=== PATIENT | male | born 1980 | race African-American/Black ===

== ENCOUNTER → 2018-03-11 11:05 | Outpatient (CLI) | payer OTHER, SELFPAY ==
--- NOTE | 2018-03-11 11:09 | DI.MRI.S_ITS ---
PROCEDURE: MR ANKLE RT WO/W CON INDICATIONS: BILATERAL HEEL PAIN TECHNIQUE: Noncontrast sagittal T1 spin echo and T2 fast spin echo with fat saturation, axial proton density fast spin echo and T2 fast spin echo with fat saturation, axial T1 spin echo with fat saturation, coronal T1 spin echo and T2 fast spin echo with fat saturation through the ankle/hindfoot. Post-contrast axial, coronal, and sagittal T1 spin echo with fat saturation through the ankle/hindfoot. COMPARISON: [facility], CR, XR FOOT 3+ VIEWS RIGHT, 02/26/2018, 15:14. FINDINGS: Image quality: Diagnostic. Bones and joints: There is no acute fracture, dislocation, or suspicious osseous lesion is identified involving the osseous structures of the right foot. There are mild degenerative changes identified involving the midfoot and forefoot joints. Ankle mortise is well-maintained. There are no osteochondral defects identified involving the tibial plafond toward the talar dome. A small tibiotalar joint effusion is identified. No additional effusions are evident. No suspicious osseous enhancement is identified. Medial structures: The deltoid ligament and the spring ligament appear to be intact. However, there is thickening of the superomedial band of the spring ligament, suggesting scarring. The tibialis posterior and flexor digitorum longus, and flexor hallucis longus tendons are intact and otherwise within normal limits. The posterior tibial nerve to the region of the tarsal tunnel is grossly unremarkable. Lateral structures: The anterior and posterior distal tibiofibular ligaments are intact. The anterior and posterior talofibular ligaments are intact. The calcaneofibular ligament is intact. There is slight increased signal and thickening involving the peroneus longus tendon along the posterior margin of the lateral malleolus. A similar appearance is noted involving the peroneus brevis tendon. No significant tearing is identified. There is a small ganglion cyst emanating from the region of the sinus tarsi Anterior structures: The tibialis anterior, extensor hallucis longus, and extensor digitorum longus tendons appear intact. Posterior and plantar structures: Mild thickening involving the distal margin of the Achilles tendon is present without significant tearing. The plantar fascia is intact and otherwise within normal limits. Other soft tissues: No soft tissue masses are evident. No suspicious soft tissue enhancement is identified. IMPRESSION: 1. No suspicious soft tissue or bony masses or abnormal enhancement. 2. Mild Achilles tendinopathy without significant tearing. 3. Mild peroneus brevis and peroneus longus tendinopathy. 4. Probable scarring of the spring ligament. No complete tear. 5. Mild degenerative changes of the midfoot and hindfoot joints. Dictated by: Jose Arana M.D. on 03/11/2018 at 16:47 Approved by: Jose Arana M.D. on 03/11/2018 at 16:52
--- NOTE | 2018-03-11 11:09 | DI.MRI.S_ITS ---
PROCEDURE: MR ANKLE LT WO/W CON INDICATIONS: BILATERAL HEEL PAIN TECHNIQUE: Noncontrast sagittal T1 spin echo and T2 fast spin echo with fat saturation, axial proton density fast spin echo and T2 fast spin echo with fat saturation, axial T1 spin echo with fat saturation, coronal T1 spin echo and T2 fast spin echo with fat saturation through the ankle/hindfoot. Post-contrast axial, coronal, and sagittal T1 spin echo with fat saturation through the ankle/hindfoot. COMPARISON: [facility], CR, XR FOOT 3+ VIEWS RIGHT, 02/26/2018, 15:14. [facility], CR, XR FOOT 3+ VIEWS LEFT, 02/26/2018, 15:10. [facility], MR, MR ANKLE RT WO/W CON, 03/11/2018, 11:32. FINDINGS: Image quality: Excellent. Bones and joints: No suspicious osseous enhancement. No bone marrow contusions or fractures. No hindfoot coalitions. 4 mm lateral talus signal change without enhancement. No pathologic joint effusions. Medial structures: The posterior tibialis, flexor digitorum longus, and flexor hallucis longus tendons are intact. There is minimal fluid adjacent to the posterior tibialis tendon The posterior tibial neurovascular bundle appears normal within the tarsal tunnel, without extrinsic mass effect. The spring ligament appears thickened and demonstrates increased T2 hyperintensity. This may extend into the deep and superficial components of the deltoid ligament complex Lateral structures: The anterior talofibular and the calcaneofibular ligament not well seen probably indicating chronic rupture Posterior talofibular ligament appears intact. More superiorly, the anterior and posterior tibiofibular ligaments appear intact, as is the intermalleolar ligament. The tibiofibular syndesmosis is normal in width at 2 mm or less. The peroneus longus and brevis tendons demonstrate normal location and morphology. Adjacent bony peroneal tubercle and retrotrochlear prominence are normal in size. The sinus tarsi demonstrates normal fatty signal, without edema, fibrosis, or cyst formation. Visualized sinus tarsi components (cervical ligament, interosseous talocalcaneal ligament, roots of the inferior extensor retinaculum) appear normal. The calcaneonavicular and calcaneocuboid components of the bifurcate ligament appear intact. The dorsal calcaneocuboid ligament appears intact. Anterior structures: The tibialis anterior, extensor hallucis longus, and extensor digitorum longus tendons appear intact. The dorsal talonavicular ligament appears intact. Posterior and plantar structures: Achilles tendon is intact. Medial and lateral bands of the plantar fascia are of normal thickness. No abductor digiti quinti muscle atrophy to suggest Robledo neuropathy. 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 Subacute or chronic appearance of spring ligament sprain, with possible involvement of the deep and superficial layers of the deltoid complex. There is plantar flexion of the talus on the comparison radiograph dated 02/26/18. Focal marrow edema involving the lateral talar dome however this is probably degenerative cystic change or edema potentially related to chronic lateral ligamentous complex injury, versus osteochondral defect. Minimal posterior tibialis tenosynovitis. Dictated by: Bashir Cuevas M.D. on 03/11/2018 at 15:19 Approved by: Bashir Cuevas M.D. on 03/11/2018 at 15:48
== END ==
PROVIDERS: Visit Provider Podiatrist
DX: M79.672 Pain in left foot (principal); M79.671 Pain in right foot; S93.412A Sprain of calcaneofibular ligament of left ankle, initial encounter; S93.492A Sprain of other ligament of left ankle, initial encounter; M19.071 Primary osteoarthritis, right ankle and foot
CPT/HCPCS: 73723; A9579

== ENCOUNTER 2018-10-23 17:23 | Emergency (ER) | payer OTHER, SELFPAY ==
[2018-10-23 17:34] VITALS: BP 128/78; PULSE 68; RESP 20; TEMP 36.6; O2SAT 96
--- NOTE | 2018-10-23 19:04 | ED.ALLEREA ---
HPI - Allergic Reaction General Chief complaint: Allergic Reaction Stated complaint: SHORT OF BREATH, LUMP ON NECK GROWING Time Seen by Provider: 10/23/18 18:03 Source: patient and family Mode of arrival: ambulatory Limitations: no limitations History of Present Illness HPI narrative: 38-year-old male nonsmoker presents with his and children in the chief complaint of a sudden onset left-sided neck pain, swelling and difficulty swallowing which started late this afternoon after eating. He denies any fever chills. He denies any history of the same. He denies any exposure to new foods, lotions or pets. He denies any recent sore throat, runny nose or cough. He denies any swelling of his lips or tongue. He denies any rash. He is fully immunized MD complaint: facial swelling Onset (ago): hour(s) Exposure: unknown Symptoms: difficulty swallowing Severity: mild Treatment prior to arrival: none Previous Allergic Reaction History: none Review of Systems Constitutional Denies chills, Denies fever(s), Denies lethargy and Denies weakness Eyes Denies change in vision, Denies eye discharge, Denies irritation and Denies loss of vision ENT Ears, Nose, Mouth, and Throat: Denies change in voice, Reports neck pain, Denies sore throat and Reports throat swelling Cardiovascular Denies chest pain, Denies irregular heart rhythm, Denies lightheadedness, Denies palpitations, Denies dyspnea, Denies dyspnea on exertion and Denies orthopnea Respiratory Denies cough, Denies dyspnea, Denies dyspnea on exertion and Denies wheezing Gastrointestinal Gastrointestinal: Denies abdominal pain, Denies change in bowel habits, Denies diarrhea, Denies nausea and Denies vomiting Genitourinary Denies hematuria, Denies flank pain, Denies urinary incontinence and Denies urinary urgency Musculoskeletal Reports neck pain Integumentary/Breasts Denies pruritus, Denies erythema, Denies rash and Denies wounds Neurologic Denies confusion, Denies loss of vision and Denies weakness Psychiatric Denies anxiety, Denies confusion, Denies depression, Denies homicidal ideation and Denies suicidal ideation Endocrine Denies palpitations Hematologic/Lymphatic Denies easy bruising Allergic/Immunologic Reports throat swelling and Denies wheezing PFSH Social History Smoking Status: Never smoker Social History Smoking Status: Never smoker Exam Narrative Exam Narrative: GENERAL: 38-year-old male appears stated age, anxious, overweight HEAD: Atraumatic. Normocephalic. No temporal or scalp tenderness. EYES: Pupils equal round and reactive. Extraocular motions intact. No scleral icterus. No injection or drainage. ENT: Left lateral neck swelling and tenderness to palpation, no redness, induration or fluctuance Nose without bleeding, purulent drainage or septal hematoma. Throat without erythema, tonsillar hypertrophy or exudate. Uvula midline. Airway patent. NECK: Trachea midline. No JVD or lymphadenopathy. Supple, nontender, no meningeal signs. CARDIOVASCULAR: Regular rate and rhythm without murmurs, gallops, or rubs. RESPIRATORY: Clear to auscultation. Breath sounds equal bilaterally. No wheezes, rales, or rhonchi. GASTROINTESTINAL: Abdomen soft, non-tender, nondistended. No hepato-splenomegaly, or palpable masses. No guarding. EXTREMITIES: No clubbing, cyanosis, or edema. No joint tenderness, effusion, or edema noted. BACK: Nontender without deformity or crepitance. No flank tenderness. NEURO: AOx3. SKIN: No rash or erythema. Initial Vital Signs Initial Vital Signs: Vital Signs Temperature 97.8 F 10/23/18 17:34 Pulse Rate 68 10/23/18 17:34 Respiratory Rate 20 10/23/18 17:34 Blood Pressure 128/78 10/23/18 17:34 Pulse Oximetry 96 10/23/18 17:34 Course Orders Ordered: ED Orders 10/23/18 19:13 CT soft tissue neck w con Stat Discontinued Medications Dexamethasone (Decadron) 20 mg IV NOW ONE Stop: 10/23/18 19:14 Last Admin: 10/23/18 19:24 Dose: 20 mg Sodium Chloride (Normal Saline 0.9%) 500 mls @ 1,000 mls/hr IV BOLUS ONE Stop: 10/23/18 19:42 Last Infusion: 10/23/18 20:44 Dose: 0 mls/hr Admin: 10/23/18 19:25 Dose: 1,000 mls/hr Ketorolac Tromethamine (Toradol) 15 mg IV NOW ONE Stop: 10/23/18 19:14 Last Admin: 10/23/18 19:24 Dose: 15 mg Vital Signs - 8 hr 10/23/18 21:01 Pulse Rate 54 L Respiratory Rate 14 Blood Pressure [Right Arm] 117/63 Pulse Oximetry 100 MDM - Allergic Reaction Imaging Data Soft Tissue Neck: Radiologist's impression: Chart Viewer Diagnostics DATE TYPE STATUS AUTHOR Hx 10/23/18 19:13 Fanny Kenney 03/11/18 11:09 Yasmeen,Jose 03/11/18 11:09 Bashir Cuevas Quinton Jamar 38, M1980 DEP ER, ED.LOC - Main ED 117.027kg Allergic Reaction Search Chart No Data to Display No Data to Display No Data to Display ONSET 10/23/18 21:01 Fidel Benitez 38 M [address] [address] [address] Scan Report Signed Patient: Fidel BenitezR#: [id number] : 1980Acct:[id number] Age/Sex: 38 / MDate of Service: 10/23/18 Loc: ED Accession Number: [id number] Procedure: CT soft tissue neck w con Ordering Provider: Sony Borden D.O. PROCEDURE: CT SOFT TISSUE NECK W CON INDICATIONS: rapid onset swelling L neck, inability to swallow TECHNIQUE: After the administration of intravenous contrast, 3.0 mm axial sections acquired from the sella to the aortic arch. Additional oblique axial 3.0 mm sections acquired through the pharynx. 3 mm thick coronal and sagittal reformats were generated. For radiation dose reduction, the following was used: automated exposure control. COMPARISON: None. FINDINGS: Image quality: Excellent. Lymph nodes: There are mildly prominent submental lymph nodes bilaterally. Minimally prominent cervical chain lymph nodes are present and symmetric. No Vessels: Visualized vasculature appears patent. Neck spaces: The oropharynx, nasopharynx, and pharynx demonstrate no mucosal lesions. The vocal cords, false vocal cords, pyriform sinuses, epiglottis, vallecula, and tongue base all appear normal. Extramucosal spaces appear unremarkable. Glands: The left submandibular gland is enlarged with trace periglandular fat stranding. The overlying platysma muscle also demonstrates mild thickening and fat stranding. This corresponds to patient's area of palpable abnormality. Submandibular duct is mildly dilated compared to the contralateral side but a discrete well wall ductal stone is not visible. The parotid and right submandibular glands appear normal. Thyroid gland is normal. Miscellaneous: Visualized brain and orbits appear normal. Lung apices appear clear. Superficial soft tissues appear normal. Bones: No suspicious bony lesions. Visualized sinuses and mastoids appear unremarkable. IMPRESSION: 1. Findings of left submandibular gland enlargement and inflammation consistent with sialadenitis. A discrete obstructing calcification is not evident, although a noncalcified stone may be present. Alternatively, there may be an infectious etiology. 2. No discrete drainable abscess. 3. Mild reactive lymphadenopathy. Dictated by: Fanny Kenney M.D. on 10/23/2018 at 20:49 Approved by: Fanny Kenney M.D. on 10/23/2018 at 20:58 Discharge Plan Departure Patient Disposition: Home Clinical Impression: Sialadenitis Discharge Date/Time: 10/23/18 21:52 Interventions: ED Discharge Assessment Last Done: 10/23/18 21:51 Activity Restrictions/Additional Instructions: *You have been diagnosed with [a swollen salivary gland] *What to do: *Take medications as directed, such as Tylenol or Motrin for pain. Be sure to chew gum or suck on hard candies like we discussed as this will help you move forward *Follow up with your primary care provider in 2-3 days, call for an appointment. Let them know you were seen in the Emergency Department and that we ask that you be seen in follow up *Return to ER if you should have any new, worsening or concerning symptoms Referrals: Horacio Albert MD [Physician] -
--- NOTE | 2018-10-23 19:13 | DI.CT.S_ITS ---
PROCEDURE: CT SOFT TISSUE NECK W CON INDICATIONS: rapid onset swelling L neck, inability to swallow TECHNIQUE: After the administration of intravenous contrast, 3.0 mm axial sections acquired from the sella to the aortic arch. Additional oblique axial 3.0 mm sections acquired through the pharynx. 3 mm thick coronal and sagittal reformats were generated. For radiation dose reduction, the following was used: automated exposure control. COMPARISON: None. FINDINGS: Image quality: Excellent. Lymph nodes: There are mildly prominent submental lymph nodes bilaterally. Minimally prominent cervical chain lymph nodes are present and symmetric. No Vessels: Visualized vasculature appears patent. Neck spaces: The oropharynx, nasopharynx, and pharynx demonstrate no mucosal lesions. The vocal cords, false vocal cords, pyriform sinuses, epiglottis, vallecula, and tongue base all appear normal. Extramucosal spaces appear unremarkable. Glands: The left submandibular gland is enlarged with trace periglandular fat stranding. The overlying platysma muscle also demonstrates mild thickening and fat stranding. This corresponds to patient's area of palpable abnormality. Submandibular duct is mildly dilated compared to the contralateral side but a discrete well wall ductal stone is not visible. The parotid and right submandibular glands appear normal. Thyroid gland is normal. Miscellaneous: Visualized brain and orbits appear normal. Lung apices appear clear. Superficial soft tissues appear normal. Bones: No suspicious bony lesions. Visualized sinuses and mastoids appear unremarkable. IMPRESSION: 1. Findings of left submandibular gland enlargement and inflammation consistent with sialadenitis. A discrete obstructing calcification is not evident, although a noncalcified stone may be present. Alternatively, there may be an infectious etiology. 2. No discrete drainable abscess. 3. Mild reactive lymphadenopathy. Dictated by: Fanny Kenney M.D. on 10/23/2018 at 20:49 Approved by: Fanny Kenney M.D. on 10/23/2018 at 20:58
[2018-10-23] MEDS: KETOROLAC 60 MG/2 ML VIAL 15 MG IV (19:24)
[2018-10-23] MEDS: DEXAMETHASONE 10 MG/ML VIAL 20 MG IV (19:24)
[2018-10-23] MEDS: SODIUM CHLORIDE 0.9% 500 ML 1000 ML IV (19:25)
[2018-10-23 19:31] VITALS: BP 117/73; PULSE 55; RESP 16; O2SAT 98
--- NOTE | 2018-10-23 20:05 | PC.NURSE ---
patient in no distress, alert and oriented x4 and speaking in full sentences, handling own secretions. Pt has gone to CT.
[2018-10-23 21:01] VITALS: BP 117/63; PULSE 54; RESP 14; O2SAT 100
--- NOTE | 2018-10-24 03:36 | ED_ITS ---
HPI - Allergic Reaction General Chief complaint: Allergic Reaction Stated complaint: SHORT OF BREATH, LUMP ON NECK GROWING Time Seen by Provider: 10/23/18 18:03 Source: patient and family Mode of arrival: ambulatory Limitations: no limitations History of Present Illness HPI narrative: 38-year-old male nonsmoker presents with his and children in the chief complaint of a sudden onset left-sided neck pain, swelling and difficulty swallowing which started late this afternoon after eating. He denies any fever chills. He denies any history of the same. He denies any exposure to new foods, lotions or pets. He denies any recent sore throat, runny nose or cough. He denies any swelling of his lips or tongue. He denies any rash. He is fully immunized MD complaint: facial swelling Onset (ago): hour(s) Exposure: unknown Symptoms: difficulty swallowing Severity: mild Treatment prior to arrival: none Previous Allergic Reaction History: none Review of Systems Constitutional Denies chills, Denies fever(s), Denies lethargy and Denies weakness Eyes Denies change in vision, Denies eye discharge, Denies irritation and Denies loss of vision ENT Ears, Nose, Mouth, and Throat: Denies change in voice, Reports neck pain, Denies sore throat and Reports throat swelling Cardiovascular Denies chest pain, Denies irregular heart rhythm, Denies lightheadedness, Denies palpitations, Denies dyspnea, Denies dyspnea on exertion and Denies orthopnea Respiratory Denies cough, Denies dyspnea, Denies dyspnea on exertion and Denies wheezing Gastrointestinal Gastrointestinal: Denies abdominal pain, Denies change in bowel habits, Denies diarrhea, Denies nausea and Denies vomiting Genitourinary Denies hematuria, Denies flank pain, Denies urinary incontinence and Denies urinary urgency Musculoskeletal Reports neck pain Integumentary/Breasts Denies pruritus, Denies erythema, Denies rash and Denies wounds Neurologic Denies confusion, Denies loss of vision and Denies weakness Psychiatric Denies anxiety, Denies confusion, Denies depression, Denies homicidal ideation and Denies suicidal ideation Endocrine Denies palpitations Hematologic/Lymphatic Denies easy bruising Allergic/Immunologic Reports throat swelling and Denies wheezing PFSH Social History Smoking Status: Never smoker Social History Smoking Status: Never smoker Exam Narrative Exam Narrative: GENERAL: 38-year-old male appears stated age, anxious, overweight HEAD: Atraumatic. Normocephalic. No temporal or scalp tenderness. EYES: Pupils equal round and reactive. Extraocular motions intact. No scleral icterus. No injection or drainage. ENT: Left lateral neck swelling and tenderness to palpation, no redness, induration or fluctuance Nose without bleeding, purulent drainage or septal hematoma. Throat without erythema, tonsillar hypertrophy or exudate. Uvula midline. Airway patent. NECK: Trachea midline. No JVD or lymphadenopathy. Supple, nontender, no meningeal signs. CARDIOVASCULAR: Regular rate and rhythm without murmurs, gallops, or rubs. RESPIRATORY: Clear to auscultation. Breath sounds equal bilaterally. No wheezes, rales, or rhonchi. GASTROINTESTINAL: Abdomen soft, non-tender, nondistended. No hepato-splenomegal y, or palpable masses. No guarding. EXTREMITIES: No clubbing, cyanosis, or edema. No joint tenderness, effusion, or edema noted. BACK: Nontender without deformity or crepitance. No flank tenderness. NEURO: AOx3. SKIN: No rash or erythema. Initial Vital Signs Initial Vital Signs: Vital Signs Temperature 97.8 F 10/23/18 17:34 Pulse Rate 68 10/23/18 17:34 Respiratory Rate 20 10/23/18 17:34 Blood Pressure 128/78 10/23/18 17:34 Pulse Oximetry 96 10/23/18 17:34 Course Orders Ordered: ED Orders 10/23/18 19:13 CT soft tissue neck w con Stat Discontinued Medications Dexamethasone (Decadron) 20 mg IV NOW ONE Stop: 10/23/18 19:14 Last Admin: 10/23/18 19:24 Dose: 20 mg Sodium Chloride (Normal Saline 0.9%) 500 mls @ 1,000 mls/hr IV BOLUS ONE Stop: 10/23/18 19:42 Last Infusion: 10/23/18 20:44 Dose: 0 mls/hr Admin: 10/23/18 19:25 Dose: 1,000 mls/hr Ketorolac Tromethamine (Toradol) 15 mg IV NOW ONE Stop: 10/23/18 19:14 Last Admin: 10/23/18 19:24 Dose: 15 mg Vital Signs - 8 hr 10/23/18 21:01 Pulse Rate 54 L Respiratory Rate 14 Blood Pressure [Right Arm] 117/63 Pulse Oximetry 100 MDM - Allergic Reaction Imaging Data Soft Tissue Neck: Radiologist's impression: Chart Viewer Diagnostics DATE TYPE STATUS AUTHOR Hx 10/23/18 19:13 Fanny Kenney 03/11/18 11:09 Yasmeen,Jose 03/11/18 11:09 Bashir Cuevas Quinton Jamar 38, M1980 DEP ER, ED.LOC - [facility] ED 117.027kg Allergic Reaction Search Chart No Data to Display No Data to Display No Data to Display ONSET 10/23/18 21:01 Fidel Benitez 38 M [address] [address] [address] Scan Report Signed Patient: Fidel BenitezR#: [id number] : 1980Acct:[id number] Age/Sex: 38 / MDate of Service: 10/23/18 Loc: ED Accession Number: [id number] Procedure: CT soft tissue neck w con Ordering Provider: Sony Borden D.O. PROCEDURE: CT SOFT TISSUE NECK W CON INDICATIONS: rapid onset swelling L neck, inability to swallow TECHNIQUE: After the administration of intravenous contrast, 3.0 mm axial sections acquired from the sella to the aortic arch. Additional oblique axial 3.0 mm sections acquired through the pharynx. 3 mm thick coronal and sagittal reformats were generated. For radiation dose reduction, the following was used: automated exposure control. COMPARISON: None. FINDINGS: Image quality: Excellent. Lymph nodes: There are mildly prominent submental lymph nodes bilaterally. Minimally prominent cervical chain lymph nodes are present and symmetric. No Vessels: Visualized vasculature appears patent. Neck spaces: The oropharynx, nasopharynx, and pharynx demonstrate no mucosal lesions. The vocal cords, false vocal cords, pyriform sinuses, epiglottis, vallecula, and tongue base all appear normal. Extramucosal spaces appear unremarkable. Glands: The left submandibular gland is enlarged with trace periglandular fat stranding. The overlying platysma muscle also demonstrates mild thickening and fat stranding. This corresponds to patient's area of palpable abnormality. Submandibular duct is mildly dilated compared to the contralateral side but a discrete well wall ductal stone is not visible. The parotid and right submandibular glands appear normal. Thyroid gland is normal. Miscellaneous: Visualized brain and orbits appear normal. Lung apices appear clear. Superficial soft tissues appear normal. Bones: No suspicious bony lesions. Visualized sinuses and mastoids appear unre markable. IMPRESSION: 1. Findings of left submandibular gland enlargement and inflammation consistent with sialadenitis. A discrete obstructing calcification is not evident, although a noncalcified stone may be present. Alternatively, there may be an infectious etiology. 2. No discrete drainable abscess. 3. Mild reactive lymphadenopathy. Dictated by: Fanny Kenney M.D. on 10/23/2018 at 20:49 Approved by: Fanny Kenney M.D. on 10/23/2018 at 20:58 Discharge Plan Departure Patient Disposition: Home Clinical Impression: Sialadenitis Discharge Date/Time: 10/23/18 21:52 Interventions: ED Discharge Assessment Last Done: 10/23/18 21:51 Activity Restrictions/Additional Instructions: *You have been diagnosed with [a swollen salivary gland] *What to do: *Take medications as directed, such as Tylenol or Motrin for pain. Be sure to chew gum or suck on hard candies like we discussed as this will help you move forward *Follow up with your primary care provider in 2-3 days, call for an appointment. Let them know you were seen in the Emergency Department and that we ask that you be seen in follow up *Return to ER if you should have any new, worsening or concerning symptoms Referrals: Horacio Albert MD [Physician] -
== END 2018-10-23 21:52 | disposition home or self-care (01) ==
PROVIDERS: Emergency Provider Emergency Medicine
DX: K11.20 Sialoadenitis, unspecified (principal)
CPT/HCPCS: 36591; 70491; 96361; 96374; 96375; 99283; 99284; J1100; J1885; Q9967

== ENCOUNTER → 2019-02-03 13:26 | Outpatient (CLI) | payer OTHER, SELFPAY ==
--- NOTE | 2019-02-03 | DI.MRI.S_ITS ---
PROCEDURE: MR HAND LT WO/W CON INDICATIONS: OSTEOARTHRITIS BILATERAL HANDS TECHNIQUE: Coronal and axial T1 spin echo and T2 fast spin echo with fat saturation. Post-contrast coronal and axial T1 spin echo with fat saturation images through the left hand and wrist. COMPARISON: None. FINDINGS: Image quality: Excellent. Bones and cartilage: Alignment of the carpal bones and phalanges is anatomic. No marrow edema is seen. No fracture or dislocation. No suspicious intraosseous lesion is seen. Synovium: There is no abnormal synovial thickening or area of abnormal synovial enhancement is seen. No evidence of tenosynovitis. Soft tissues: Flexor and extensor tendons are grossly intact. No soft tissue mass or fluid collection. No area of abnormal enhancement. IMPRESSION: 1. No evidence of bony erosion. No marrow edema. No fracture or dislocation. 2. No evidence of tenosynovitis in left hand. 3. No abnormal soft tissue enhancement. Dictated by: Andrea Bello M.D. on 02/03/2019 at 16:08 Approved by: Andrea Bello M.D. on 02/03/2019 at 17:45
--- NOTE | 2019-02-03 | DI.MRI.S_ITS ---
PROCEDURE: MR HAND RT WO/W CON INDICATIONS: OSTEOARTHRITIS BILATERAL HANDS TECHNIQUE: Coronal and axial T1 spin echo and T2 fast spin echo with fat saturation. Post-contrast coronal and axial T1 spin echo with fat saturation images through the right hand and wrist. COMPARISON: None. FINDINGS: Image quality: Excellent. Bones and cartilage: Sulfa skin marker is placed over the dorsal aspect of third metatarsal head. Alignment of phalanges and carpal bones is anatomic. No gross marrow edema. No fracture or dislocation. Small intraosseous cyst formation within radial aspect of third metacarpal head is seen, subtle bony erosion in this area cannot be entirely excluded. No other area of marrow signal abnormality or bony erosive changes. No suspicious intraosseous lesion. Synovium: There is no abnormal synovial thickening or fluid distention of tendon sheath to suggest tenosynovitis. Soft tissues: Flexor and extensor tendons are grossly intact. No soft tissue mass or abnormal fluid collection. No area of abnormal enhancement. IMPRESSION: 1. Possible tiny cyst versus erosion involving radial aspect of third metacarpal head. No other area of marrow signal abnormality or abnormal enhancement. 2. No evidence of tenosynovitis. 3. No gross soft tissue mass or fluid collection. Dictated by: Andrea Bello M.D. on 02/03/2019 at 17:46 Approved by: Andrea Bello M.D. on 02/03/2019 at 17:48
== END ==
PROVIDERS: PCP Internal Medicine Rheumatology; Visit Provider Internal Medicine Rheumatology
DX: M19.042 Primary osteoarthritis, left hand (principal); M19.041 Primary osteoarthritis, right hand
CPT/HCPCS: 73220; A9579